=== PATIENT | female | born 1995 | race Caucasian/White ===

== ENCOUNTER 2019-01-11 22:24 | Inpatient (IN) | payer OTHER ==
[~2019-01-11 22:24] MED LIST: Bupivacaine/Epinephrine 0.25% 30 ML VIAL ONE; Lidocaine 2% MPF 10 ML AMP (For Epidural Use) ONE; ePHEDrine/0.9% NaCl/PF SYRINGE 50 mg/10 ml ONE
[2019-01-11 23:26] VITALS: BMI 44.6
[2019-01-11] MEDS ORDERED: Promethazine HCl 25 MG/ML VIAL IM PRN (23:28)
[2019-01-11] MEDS ORDERED: HYDROcodone/Acetaminophen 5/325 mg Tablet PO PRN ×2 (23:28)
[2019-01-11] MEDS ORDERED: Lidocaine 1% (PF) 30 ML VIAL SC PRN (23:28)
[2019-01-11] MEDS ORDERED: Ibuprofen 800 MG TAB PO PRN (23:28)
[2019-01-11] MEDS ORDERED: NS / Oxytocin 40 units/1000ml 1,000 ML IV PRN (23:28)
[2019-01-11] MEDS ORDERED: Ondansetron PF 4 MG/2 ML Vial IVP PRN (23:28)
[2019-01-11] MEDS ORDERED: Zolpidem Tartrate 5 MG TAB PO PRN (23:28)
[2019-01-11] MEDS ORDERED: Butorphanol Tartrate 1 MG/ML VIAL SLOW IVP PRN (23:28)
[2019-01-11] MEDS ORDERED: Acetaminophen 500 MG TAB PO PRN (23:28)
[2019-01-11] MEDS ORDERED: Meperidine HCl/PF 25 MG/ML VIAL IM/IV PRN (23:28)
[2019-01-11] MEDS ORDERED: Lactated Ringer's 1,000 ML IV SCH (23:30)
[2019-01-11] MEDS ORDERED: NS w/ Oxytocin 10 units 500 ML IV SCH (23:30)
[2019-01-11 23:59] LABS: Hemoglobin 11.2 g/dL (12.0-16.0); Mean Corpuscular HGB CONC 32.2 g/dL (32.0-36.0); Mean Corpuscular Volume 83.6 fL (78.0-98.0); Mean Platelet Volume 7.1 fL (7.4-10.4); Platelet Count 277 thou/uL (130-400); RBC Distribution Width 13.5 % (11.5-14.5); Red Blood Cell (RBC) Count 4.15 mill/uL (4.20-5.40); White Blood Cell (WBC) Count 12.4 thou/uL (4.8-10.8)
[2019-01-12] MEDS ORDERED: Fentanyl 4 mcg/Bup 0.1% Cadd 100 ML ONE ×2 (00:12→07:38)
[2019-01-12 00:37] LABS: Syphilis Antibody Nonreactive (Nonreactive); Syphilis Antibody Index 0.05 S/CO (<1.00 Non-Reactive)
[2019-01-12] MEDS: Lactated Ringer's 1,000 ML IV SCH ×2 (01:00→10:41)
[2019-01-12] MEDS ORDERED: ePHEDrine/0.9% NaCl/PF SYRINGE 50 mg/10 ml SLOW IVP PRN (01:02)
[2019-01-12] MEDS ORDERED: Acetaminophen 325 MG TAB PO PRN (01:02)
[2019-01-12] MEDS ORDERED: Naloxone HCl 0.4 mg/ml Vial IVP PRN ×2 (01:02)
[2019-01-12] MEDS ORDERED: diphenhydrAMINE 50 MG/ML VIAL IVP PRN (01:02)
[2019-01-12] MEDS ORDERED: Lactated Ringer's 500 ML IV PRN (01:02)
[2019-01-12] MEDS ORDERED: Ondansetron PF 4 MG/2 ML Vial IVP PRN ×2 (01:02→13:49)
[2019-01-12] MEDS ORDERED: Eucerin (Mineral Oil/Petrolatum,White) 30 gm Jar TOP PRN (01:02)
[2019-01-12] MEDS ORDERED: Promethazine HCl 25 MG/ML VIAL IM PRN (01:02)
[2019-01-12] MEDS ORDERED: Fentanyl 4 mcg/Bupivacaine 0.1% Cassette 100 ML EPIDURAL SCH (01:15)
[2019-01-12] MEDS ORDERED: Communication Order-Pharmacy FS SCH (01:15)
[2019-01-12 02:02] LABS: HBSAg Index 0.22 S/CO (0-0.99); Hep B Surf Ag Non-Reactive S/CO (NonReactive)
[2019-01-12] MEDS ORDERED: PHENYLEPHRINE-NS 100 MCG/ML 10 ML SYRINGE ONE (02:02)
[2019-01-12] MEDS ORDERED: NS w/ Oxytocin 10 units 500 ML ONE (11:12)
[2019-01-12] MEDS ORDERED: Zolpidem Tartrate 5 MG TAB PO PRN (13:49)
[2019-01-12] MEDS ORDERED: Benzocaine/Menthol 20-0.5% 60 ML CAN TOP PRN (13:49)
[2019-01-12] MEDS ORDERED: Preparation H Ointment 28 GM TUBE PR PRN (13:49)
[2019-01-12] MEDS ORDERED: Bisacodyl 10 MG SUPP PR PRN (13:49)
[2019-01-12] MEDS ORDERED: Lanolin Ointment 7 GM TUBE TOP PRN (13:49)
[2019-01-12] MEDS ORDERED: Milk Of Magnesia 30 ML UDCUP PO PRN (13:49)
[2019-01-12] MEDS ORDERED: Misoprostol 200 MCG TAB VAG PRN (13:49)
[2019-01-12] MEDS ORDERED: diphenhydrAMINE 25 MG CAP PO PRN (13:49)
[2019-01-12] MEDS ORDERED: Acetaminophen/Codeine 30-300mg Tablet PO PRN ×2 (13:49)
[2019-01-12] MEDS ORDERED: NS / Oxytocin 40 units/1000ml 1,000 ML IV SCH (14:00)
[2019-01-12] MEDS: Ibuprofen 800 MG TAB PO SCH ×2 (18:18→21:48)
[2019-01-12] MEDS: Ferrous Sulfate 325 MG TAB PO SCH (18:20)
[2019-01-12] MEDS: Docusate Calcium (SURFAK) 240 MG CAP PO SCH (21:48)
[2019-01-13] MEDS: Ibuprofen 800 MG TAB PO SCH ×2 (06:22→14:13)
[2019-01-13 06:25] LABS: Hemoglobin 10.6 g/dL (12.0-16.0); Mean Corpuscular HGB CONC 31.8 g/dL (32.0-36.0); Mean Corpuscular Hemoglobin 27.4 pg (27.0-31.0); Mean Corpuscular Volume 86.1 fL (78.0-98.0); Mean Platelet Volume 7.3 fL (7.4-10.4); Platelet Count 224 thou/uL (130-400); RBC Distribution Width 13.6 % (11.5-14.5); Red Blood Cell (RBC) Count 3.86 mill/uL (4.20-5.40); White Blood Cell (WBC) Count 11.4 thou/uL (4.8-10.8)
[2019-01-13 07:49] VITALS: BP 112/65; TEMP 97.6
[2019-01-13] MEDS: Docusate Calcium (SURFAK) 240 MG CAP PO SCH (08:55)
[2019-01-13] MEDS: Ferrous Sulfate 325 MG TAB PO SCH (08:57)
[2019-01-13] MEDS ORDERED: Adacel (T-DAP) 0.5 ML SYRINGE IM ONE (09:00)
[2019-01-13] MEDS ORDERED: Prenatal Vitamin 1 TAB PO SCH (09:00)
== END 2019-01-13 16:20 | disposition home or self-care (01) | DRG 807 ==
LOC: L&D/OP 22:24 → L&D 23:36 → 3SW 01-12 16:34
PROVIDERS: ADMIT Obstetrics & Gynecology; ATTEND Obstetrics & Gynecology
PROC: 10E0XZZ Delivery of Products of Conception, External Approach (ICD-10-PCS; principal; 2019-01-12)
PROC: 0KQM0ZZ Repair Perineum Muscle, Open Approach (ICD-10-PCS; 2019-01-12)
PROC: 10907ZC Drainage of Amniotic Fluid, Therapeutic from Products of Conception, Via Natural or Artificial Opening (ICD-10-PCS; 2019-01-12)
DX: O26.843 Uterine size-date discrepancy, third trimester (principal); Z37.0 Single live birth; O70.1 Second degree perineal laceration during delivery; Z3A.38 38 weeks gestation of pregnancy
CPT/HCPCS: 36415; 51702; 85027; 86780; 86850; 86900; 86901; 87340; 99285; J2001; J2405